=== PATIENT | female | born 2000 | race Caucasian/White ===

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

== ENCOUNTER 2020-09-28 23:05 | Emergency (ER) | payer BC ==
[2020-09-28 23:24] VITALS: BP 126/85; PULSE 74
--- NOTE | 2020-09-29 00:15 | EDM.PDOC ---
ED HPI GENERAL MEDICAL PROBLEM - General Chief Complaint: Head Injury Stated Complaint: poss head injury Time Seen by Provider: 09/28/20 23:17 Source of Information: Reports: Patient History Limitations: Reports: No Limitations - History of Present Illness INITIAL COMMENTS - FREE TEXT/NARRATIVE: Shortly before presentation to the ED the patient had tripped over her dog and had fallen striking the back of her head on a hard surface. The patient thinks she lost consciousness. She said she was dazed and it took a while to recover. She has no specific neurological complaint upon interview however. There are no substantial risk factors. No treatment or other intervention prior to arrival. She uses e-cigarettes. Headache Pain Score (Numeric/FACES): 8 - Related Data Allergies Allergy/AdvReac Type Severity Reaction Status Date / Time No Known Allergies Allergy Verified 09/28/20 23:21 Home Meds: Home Meds QUEtiapine [SEROquel] 100 mg PO DAILY 10/12/17 [History] Past Medical History - Past Health History Medical/Surgical History: Denies Medical/Surgical History Psychiatric History: Reports: Anxiety, Depression, Mood Swings, Psychosis, Schizophrenia Social & Family History - Family History Family Medical History: No Pertinent Family History - Caffeine Use Caffeine Use: Reports: Coffee, Soda - Recreational Drug Use Recreational Drug Use: No ED ROS GENERAL - Review of Systems Review Of Systems: Comprehensive ROS is negative, except as noted in HPI. ED EXAM, HEAD INJURY - Physical Exam Exam: See Below Text/Narrative:: On exam the patient is alert and appears well. Head normocephalic atraumatic, there is no gross evidence of injury to the scalp or the head. EOMI PERRLA. Neck is supple without jugular venous distention. Lungs are clear breath sounds are full and equal bilaterally. Heart is regular. Abdomen is soft and nontender. No peripheral edema cyanosis or clubbing of the digits. Skin is warm and dry with normal turgor. Neurologically the patient is intact with fluent speech symmetrical gait normal cognition and no deficit of motor or se nsory function. #1 Interpretation EKG Date: 09/29/20 Time: 00:13 Rhythm: NSR [place]: Normal P-Wave: Present QRS: Normal ST-T: Normal QT: Normal Comparison: Change From Previous EKG (Earlier EKG was sinus tachycardia (2018)) Course - Vital Signs Text/Narrative:: There are no salient abnormals on labs or imaging. She has had a CT of the head and cervical spine both negative. Discussed fully with the patient. She feels well and is being discharged to home. Follow-up with primary care. Any problems at all return to the ER.. Taking the patient's history at face value we would have to assume that she has had a concussion. Strict precautions for return to ER. Last Recorded V/S: Last Vital Signs Temp 36.9 C 09/28/20 23:16 Pulse 74 09/28/20 23:16 Resp 18 09/28/20 23:16 BP 126/85 09/28/20 23:16 Pulse Ox 100 09/28/20 23:16 - Orders/Labs/Meds Orders: Active Orders 24 hr Category Date Time Status EKG Documentation Completion [RC] STAT Care 09/28/20 23:27 Active Cervical Spine wo Cont [CT] Stat Exams 09/28/20 23:55 Taken Head wo Cont [CT] Stat Exams 09/28/20 23:55 Taken Labs: Laboratory Tests 09/28/20 09/28/20 09/28/20 Range/Units 23:29 23:29 23:30 WBC (3.98-10.04) K/mm3 RBC (3.98-5.22) M/mm3 Hgb (11.2-15.7) gm/dl Hct (34.1-44.9) % MCV (79.4-94.8) fl MCH (25.6-32.2) pg MCHC (32.2-35.5) g/dl RDW Std Deviation (36.4-46.3) fL Plt Count (182-369) K/mm3 MPV (9.4-12.3) fl Neutrophils % (Manual) (40-60) % Band Neutrophils % (0-10) % Lymphocytes % (Manual) (20-40) % Atypical Lymphs % % Monocytes % (Manual) (2-10) % Eosinophils % (Manual) (0.7-5.8) % Basophils % (Manual) (0.1-1.2) Platelet Estimate RBC Morph Comment Sodium (136-145) mEq/L Potassium (3.5-5.1) mEq/L Chloride (98-107) mEq/L Carbon Dioxide (21-32) mEq/L Anion Gap (5-15) BUN (7-18) mg/dL Creatinine (0.55-1.02) mg/dL Est Cr Clr Drug Dosing mL/min Estimated GFR (MDRD) (>60) mL/min BUN/Creatinine Ratio (14-18) Glucose (74-106) mg/dL Calcium (8.5-10.1) mg/dL Total Bilirubin (0.2-1.0) mg/dL AST (15-37) U/L ALT (14-59) U/L Alkaline Phosphatase (46-116) U/L Troponin I (0.00-0.056) ng/mL Total Protein (6.4-8.2) g/dl Albumin (3.4-5.0) g/dl Globulin gm/dL Albumin/Globulin Ratio (1-2) TSH 3rd Generation (0.358-3.74) uIU/mL Urine Color Light yellow (Yellow) Urine Appearance Cloudy H (Clear) Urine pH 7.5 (5.0-8.0) Ur Specific [place] > or = 1.030 (1.005-1.030) Urine Protein Negative (Negative) Urine Glucose (UA) Negative (Negative) Urine Ketones Negative (Negative) Urine Occult Blood Trace-intact H (Negative) Urine Nitrite Negative (Negative) Urine Bilirubin Negative (Negative) Urine Urobilinogen 0.2 (0.2-1.0) Ur Leukocyte Esterase Negative (Negative) Urine RBC 0-5 (0-5) /hpf Urine WBC 0-5 (0-5) /hpf Ur Squamous Epith Cells 0-5 (0-5) /hpf Amorphous Sediment Many H (NOT SEEN) /hpf Urine Bacteria Few (FEW) /hpf Urine Mucus Not seen (FEW) /hpf Urine HCG, Qual Negative (NEGATIVE) Urine Opiates Screen Negative (LVRUYY=524) Ur Buprenorphine Scrn Negative (CUTOFF=10) Ur Oxycodone Screen Negative (CKP3MA=565) Urine Methadone Screen Negative (EMMQRC=830) Ur Propoxyphene Screen Negative (VXYMBS=524) Ur Barbiturates Screen Negative (WSCABI=392) Ur Tricyclics Screen Negative (ZCHNWT=856) Ur Phencyclidine Scrn Negative (CUTOFF=25) Ur Amphetamine Screen Negative (KGEVLK=157) U Methamphetamines Scrn Negative (SITYSZ=939) U Benzodiazepines Scrn Negative (GBEQEJ=754) U Cocaine Metab Screen Negative (SAGVGB=986) U Marijuana (THC) Screen Negative (CUTOFF=50) Ethyl Alcohol (0.00) gm% 09/28/20 09/28/20 Range/Units 23:39 23:39 WBC 8.06 (3.98-10.04) K/mm3 RBC 4.12 (3.98-5.22) M/mm3 Hgb 12.0 (11.2-15.7) gm/dl Hct 36.7 (34.1-44.9) % MCV 89.1 D (79.4-94.8) fl MCH 29.1 (25.6-32.2) pg MCHC 32.7 (32.2-35.5) g/dl RDW Std Deviation 38.0 (36.4-46.3) fL Plt Count 273 (182-369) K/mm3 MPV 9.8 (9.4-12.3) fl Neutrophils % (Manual) 60 (40-60) % Band Neutrophils % 0 (0-10) % Lymphocytes % (Manual) 26 (20-40) % Atypical Lymphs % 0 % Monocytes % (Manual) 8 (2-10) % Eosinophils % (Manual) 5 (0.7-5.8) % Basophils % (Manual) 1 (0.1-1.2) Platelet Estimate Adequate RBC Morph Comment Normal Sodium 142 (136-145) mEq/L Potassium 3.5 (3.5-5.1) mEq/L Chloride 103 (98-107) mEq/L Carbon Dioxide 27 (21-32) mEq/L Anion Gap 15.5 H (5-15) BUN 12 (7-18) mg/dL Creatinine 0.6 (0.55-1.02) mg/dL Est Cr Clr Drug Dosing 128.08 mL/min Estimated GFR (MDRD) > 60 (>60) mL/min BUN/Creatinine Ratio 20.0 H (14-18) Glucose 89 (74-106) mg/dL Calcium 9.6 (8.5-10.1) mg/dL Total Bilirubin 0.3 (0.2-1.0) mg/dL AST 17 (15-37) U/L ALT 20 (14-59) U/L Alkaline Phosphatase 59 (46-116) U/L Troponin I < 0.017 (0.00-0.056) ng/mL Total Protein 7.6 (6.4-8.2) g/dl Albumin 4.1 (3.4-5.0) g/dl Globulin 3.5 gm/dL Albumin/Globulin Ratio 1.2 (1-2) TSH 3rd Generation 1.250 (0.358-3.74) uIU/mL Urine Color (Yellow) Urine Appearance (Clear) Urine pH (5.0-8.0) Ur Specific [place] (1.005-1.030) Urine Protein (Negative) Urine Glucose (UA) (Negative) Urine Ketones (Negative) Urine Occult Blood (Negative) Urine Nitrite (Negative) Urine Bilirubin (Negative) Urine Urobilinogen (0.2-1.0) Ur Leukocyte Esterase (Negative) Urine RBC (0-5) /hpf Urine WBC (0-5) /hpf Ur Squamous Epith Cells (0-5) /hpf Amorphous Sediment (NOT SEEN) /hpf Urine Bacteria (FEW) /hpf Urine Mucus (FEW) /hpf Urine HCG, Qual (NEGATIVE) Urine Opiates Screen (LZRKUV=523) Ur Buprenorphine Scrn (CUTOFF=10) Ur Oxycodone Screen (BUV0GD=171) Urine Methadone Screen (RUAQPP=541) Ur Propoxyphene Screen (WQDWKU=950) Ur Barbiturates Screen (XGCKNN=353) Ur Tricyclics Screen (UXPOGF=828) Ur Phencyclidine Scrn (CUTOFF=25) Ur Amphetamine Screen (PADTKC=186) U Methamphetamines Scrn (ENRANG=003) U Benzodiazepines Scrn (EDTXPH=350) U Cocaine Metab Screen (EEKBKH=150) U Marijuana (THC) Screen (CUTOFF=50) Ethyl Alcohol 0.00 (0.00) gm% Departure - Departure Time of Disposition: 01:54 Disposition: Home, Self-Care 01 Condition: Good Clinical Impression: Fall at home Qualifiers: Encounter type: initial encounter Qualified Code(s): W19.XXXA - Unspecified fall, initial encounter; Y92.009 - Unspecified place in unspecified non- institutional (private) residence as the place of occurrence of the external cause Concussion Qualifiers: Encounter type: initial encounter Loss of consciousness presence/duration: with LOC of 30 min or less Qualified Code(s): S06.0X1A - Concussion with loss of consciousness of 30 minutes or less, initial encounter - Discharge Information Referrals: Ninfa Saravia, CLAIMS REPRESENTATIVE [Primary Care Provider] - Forms: ED Department Discharge Additional Instructions: You have had a fall at home with loss of consciousness. This is considered a concussion. You have no neurological deficits in the imaging of your brain is negative for any injury. It is safe for you to go home. If you have any problems with memory thought processes weakness return to ER immediately. Recommend close follow-up with your primary physician. You should be seen later on this week if at all possible. Sepsis Event Note (ED) - Evaluation Sepsis Screening Result: No Definite Risk - Focused Exam Vital Signs: Vital Signs Temp Pulse Resp BP Pulse Ox 09/28/20 23:16 36.9 C 74 18 126/85 100 - My Orders Last 24 Hours: My Active Orders 09/28/20 23:27 EKG Documentation Completion [RC] STAT 09/28/20 23:55 Cervical Spine wo Cont [CT] Stat Head wo Cont [CT] Stat - Assessment/Plan Last 24 Hours: My Active Orders 09/28/20 23:27 EKG Documentation Completion [RC] STAT 09/28/20 23:55 Cervical Spine wo Cont [CT] Stat Head wo Cont [CT] Stat
--- NOTE | 2020-09-29 08:24 | CT ---
Head CT Technique: Multiple axial sections through the brain were obtained. Intravenous contrast was not utilized. Reconstructed coronal and sagittal images were obtained. Comparison: No prior intracranial imaging is available. Findings: Ventricles along with basal cisterns and sulci over the convexities are within normal limits for the patient's age. No abnormal parenchymal densities are seen. No evidence of intracranial hemorrhage. No midline shift or mass-effect is seen. Bone window settings were reviewed. Visualized mastoid sinuses and paranasal sinuses show nothing acute. No acute calvarial finding is seen. Impression: 1. Nothing acute is seen on noncontrast head CT exam. Diagnostic code #1 I agree with preliminary report from [facility], finalized on 09/29/20, 2:48 AM CDT
--- NOTE | 2020-09-29 09:37 | CT ---
CT cervical spine Technique: Multiple axial sections were obtained from above C1 inferiorly to the bottom of T2. Reconstructed coronal and sagittal images were obtained. Comparison: No prior cervical spine imaging is available. Findings: Vertebral body heights and disc spaces are maintained. No bony central or bony neural foraminal stenosis is seen. No acute fracture or abnormal subluxation is seen. Patient's cervical spine is positioned in kyphosis which is most likely positional. Impression: 1. Probable kyphosis due to positioning. 2. Nothing acute is appreciated on CT study of the cervical spine. Diagnostic code #2 I agree with preliminary report from [facility], finalized on 09/29/20, 2:49 AM CDT
== END 2020-09-29 02:03 | disposition home or self-care (01) ==
LOC: JD.ED 23:05
DX: S06.0X1A Concussion with loss of consciousness of 30 minutes or less, initial encounter (principal); F17.290 Nicotine dependence, other tobacco product, uncomplicated; R00.0 Tachycardia, unspecified; W01.0XXA Fall on same level from slipping, tripping and stumbling without subsequent striking against object, initial encounter; Y92.009 Unspecified place in unspecified non-institutional (private) residence as the place of occurrence of the external cause
CPT/HCPCS: 36415; 70450; 70450-26; 72125; 72125-26; 80053; 80306; 80307; 81001; 81025; 84443; 84484; 85007; 85027; 93005; 93010; 99284; 99284-25

== ENCOUNTER 2021-11-20 13:20 | Emergency (ER) | payer BC ==
[2021-11-20 13:38] VITALS: BP 122/80; PULSE 100
== END 2021-11-20 16:05 | disposition home or self-care (01) ==
LOC: JD.ED 13:20
DX: N93.8 Other specified abnormal uterine and vaginal bleeding (principal)
CPT/HCPCS: 36415; 76830; 76830-26; 80053; 81001; 84439; 84443; 84703; 85025; 99284-25

== ENCOUNTER 2022-08-06 13:17 | Emergency (ER) | payer BC | END 2022-08-06 13:50 | disposition left against medical advice (07) | LOC: JD.ED 13:17 | DX: Z53.21 Procedure and treatment not carried out due to patient leaving prior to being seen by health care provider (principal) ==

== ENCOUNTER 2022-08-30 15:13 | Inpatient (IN) | payer BC ==
[2022-08-30] MEDS ORDERED: Nalbuphine 10 MG/0.5 ML Syringe IVPUSH PRN (15:51)
[2022-08-30] MEDS ORDERED: Sodium Chloride 0.9% 10 ML Syringe FLUSH PRN (15:51)
[2022-08-30] MEDS ORDERED: Ondansetron 4 MG/2 ML SDV IVPUSH PRN (15:51)
[2022-08-30] MEDS ORDERED: Acetaminophen 325 MG Tab PO PRN (15:51)
[2022-08-30] MEDS ORDERED: Calcium Carbonate 500 MG Tab.Chew PO PRN (15:51)
[2022-08-30] MEDS ORDERED: ePHEDrine 50 MG/ML SDV IVPUSH PRN (15:55)
[2022-08-30] MEDS ORDERED: diphenhydrAMINE 50 MG/ML SDV IVPUSH PRN (15:55)
[2022-08-30] MEDS ORDERED: Bupivacaine/fentaNYL/NS 100 ML Bag EPIDUR PRN (15:55)
[2022-08-30] MEDS ORDERED: fentaNYL 100 MCG/2 ML SDV EPIDUR PRN (15:55)
[2022-08-30] MEDS ORDERED: Oxytocin/Lactated Ringers 10 UNIT/1,000 ML BAG IV SCH ×2 (16:00)
[2022-08-30] MEDS: Lactated Ringers 1,000 ML IV SCH ×4 (16:23→21:53)
[2022-08-30] MEDS ORDERED: Bupivacaine 0.25% 10 ML SDV ONE (19:00)
[2022-08-31] MEDS: QUEtiapine 100 MG Tab PO SCH ×2 (04:38→20:26)
[2022-08-31] MEDS ORDERED: Acetaminophen 325 MG Tab PO PRN (04:39)
[2022-08-31] MEDS ORDERED: Docusate Sodium 100 MG Cap PO PRN (04:39)
[2022-08-31] MEDS ORDERED: Benzocaine/Menthol 20%-0.5% Spray 78 GM Cannister TOP PRN (04:39)
[2022-08-31] MEDS ORDERED: Witch Hazel Medicated Pads 40/Jar TOP PRN (04:39)
[2022-08-31] MEDS: Ibuprofen 600 MG Tab PO PRN ×3 (07:53→20:56)
[2022-09-01] MEDS: Ibuprofen 600 MG Tab PO PRN (05:37)
[2022-09-01 14:44] VITALS: BP 112/64; PULSE 92
== END 2022-09-01 15:10 | disposition home or self-care (01) | DRG 560 ==
LOC: JD.OBCHECK 15:13 → JD.OB 15:14 → JD.OBCHECK 15:52 → JD.OB 15:52 → OBSVTOIN 22:55 → JD.MS 22:56 → JD.OB 08-31 13:58
PROVIDERS: ADMIT Obstetrics & Gynecology; ATTEND Obstetrics & Gynecology
PROC: 10E0XZZ Delivery of Products of Conception, External Approach (ICD-10-PCS; principal; 2022-08-30)
PROC: 0KQM0ZZ Repair Perineum Muscle, Open Approach (ICD-10-PCS; 2022-08-30)
PROC: 3E0R3BZ Introduction of Anesthetic Agent into Spinal Canal, Percutaneous Approach (ICD-10-PCS; 2022-08-30)
PROC: 00HU33Z Insertion of Infusion Device into Spinal Canal, Percutaneous Approach (ICD-10-PCS; 2022-08-30)
DX: O42.02 Full-term premature rupture of membranes, onset of labor within 24 hours of rupture (principal); O70.1 Second degree perineal laceration during delivery; Z37.0 Single live birth; O69.81X0 Labor and delivery complicated by cord around neck, without compression, not applicable or unspecified; Z96.22 Myringotomy tube(s) status; O99.344 Other mental disorders complicating childbirth; O98.32 Other infections with a predominantly sexual mode of transmission complicating childbirth; A60.09 Herpesviral infection of other urogenital tract; F41.8 Other specified anxiety disorders; Z87.891 Personal history of nicotine dependence; Z3A.39 39 weeks gestation of pregnancy; Z98.890 Other specified postprocedural states
CPT/HCPCS: 36415; 51701; 51702; 59025; 59409; 85025; 86592; A9270-GY; J2590; J3010; J3490; J7120

== ENCOUNTER 2024-03-06 18:53 | Emergency (ER) | payer BC ==
[2024-03-06 20:34] LABS: BASOPHILS ABSOLUTE AUTO 0.1 K/mm3 (0.0-0.2); BASOPHILS PERCENT AUTO 0.7 % (0.0-1.0); EOSINOPHILS ABSOLUTE AUTO 0.2 K/mm3 (0.0-0.4); EOSINOPHILS PERCENT AUTO 2.7 % (0.0-6.0); HEMOGLOBIN 12.2 gm/dl (12.0-16.0); IMMATURE GRAN ABSOLUTE AUTO 0.02 K/mm3 (0.00-0.05); IMMATURE GRAN PERCENT AUTO 0.3 % (0.0-0.4); LYMPHOCYTES ABSOLUTE AUTO 2.2 K/mm3 (1.0-4.8); LYMPHOCYTES PERCENT AUTO 29.6 % (24.0-44.0); MEAN CORPUSCULAR HEMOGLOBIN 28.2 pg (28.0-32.0); MEAN CORPUSCULAR HGB CONC 32.1 g/dl (32.0-36.0); MEAN PLATELET VOLUME 9.8 fl (9.4-12.3); MONOCYTES ABSOLUTE AUTO 0.5 K/mm3 (0.0-0.8); MONOCYTES PERCENT AUTO 6.8 % (0.0-8.0); NEUTROPHILS ABSOLUTE AUTO 4.4 K/mm3 (1.8-7.7); NEUTROPHILS PERCENT AUTO 59.9 % (41.0-71.0); PLATELET COUNT,PLT 299 K/mm3 (150-400); RED BLOOD CELL COUNT 4.32 M/mm3 (4.10-5.30); WHITE BLOOD CELL COUNT,WBC 7.32 K/mm3 (3.9-11.3)
[2024-03-06 21:07] LABS: A/G RATIO 1.1 (1-2); ALBUMIN 4.1 g/dl (3.4-5.0); ANION GAP 12.7 (5-15); BILIRUBIN TOTAL 0.2 mg/dL (0.2-1.0); BUN/CREATININE RATIO 13.3 (14-18); CALCIUM 9.1 mg/dL (8.5-10.1); CREATININE 0.6 mg/dL (0.55-1.02); EST CRCL DRUG DOSING (CG) 123.77 mL/min; ETHANOL BLOOD MEDICAL 0.03 gm% (0.00); POTASSIUM,K 3.7 mEq/L (3.5-5.1); PROTEIN TOTAL,TP 7.8 g/dl (6.4-8.2); TSH 1.381 uIU/mL (0.358-3.74)
[2024-03-06 21:16] LABS: AMPHETAMINES SCREEN, URINE NEGATIVE (CUTOFF=500); BARBITURATE SCREEN,URINE NEGATIVE (CUTOFF=200); BENZODIAZEPINES SCREEN,URINE NEGATIVE (CUTOFF=150); BUPRENORPHINE SCREEN,URINE NEGATIVE (CUTOFF=10); METHADONE SCREEN, URINE NEGATIVE (CUTOFF=200); METHAMPHETAMINES SCREEN, URINE NEGATIVE (CUTOFF=500); OXYCODONE SCREEN,URINE NEGATIVE (CUT0FF=100); THC SCREEN,URINE 20 NG/ML NEGATIVE (CUTOFF=50)
[2024-03-06 23:31] VITALS: BP 135/85; PULSE 88
== END 2024-03-06 23:38 | disposition home or self-care (01) ==
LOC: JD.ED 18:53
DX: R45.851 Suicidal ideations (principal); F32.A Depression, unspecified; Z79.899 Other long term (current) drug therapy; Z86.16 Personal history of COVID-19
CPT/HCPCS: 36415; 80053; 80143; 80179; 80306; 80307; 81025; 84443; 85025; 93005; 93010; 99285; U0002